=== PATIENT | female | born 2000 | race African-American/Black ===

== ENCOUNTER 2023-06-28 08:49 | Emergency (ER) | payer SELFPAY ==
[~2023-06-28] VITALS: Ht 165.1 cm; Wt 82.6 kg
[2023-06-28 08:56] VITALS: BP 107/67; PULSE 80; RESP 16; TEMP 98.1; O2SAT 100
[2023-06-28] MEDS ORDERED: MUPI1OIN4 TP (09:04)
== END 2023-06-28 09:09 | disposition home or self-care (01) ==
LOC: ER 08:49
DX: S00.01XA Abrasion of scalp, initial encounter (principal); X58.XXXA Exposure to other specified factors, initial encounter; Y93.89 Activity, other specified; Y92.89 Other specified places as the place of occurrence of the external cause; Y99.8 Other external cause status
CPT/HCPCS: 99283